=== PATIENT | female | born 1950 | race Caucasian/White ===

== ENCOUNTER 2019-05-20 00:27 | Emergency (ER) | payer OTHER ==
[2019-05-20] MEDS ORDERED: LIDOCAINE 1% MPF 5 ML VIAL ONE (01:18)
--- NOTE | 2019-05-20 01:31 | ER ---
Nurse's Notes [facility] Name: Terri Walker Age: 68 yrs Sex: Female : 1950 Arrival Date: 05/20/2019 Time: 00:30 Bed 7 Private MD: Diagnosis: Laceration of extensor muscle, fascia and tendon of right little finger at wrist and hand level Presentation: 05/19 00:37 Chief complaint: Patient states: i cut my right hand while washing a broken cup this mg2 evening. cut is approx. 0.5 inch long in between the 4th and 5th finger. Coronavirus screen: The patient has NOT traveled to [place] in the past 14 days. Proceed with normal triage procedures. Ebola Screen: No symptoms or risks identified at this time. Initial Sepsis Screen: Does the patient meet any 2 criteria? No. Patient's initial sepsis screen is negative. Does the patient have a suspected source of infection? No. Patient's initial sepsis screen is negative. Risk Assessment: Do you want to hurt yourself or someone else? Patient reports no desire to harm self or others. 00:37 Method Of Arrival: Ambulatory mg2 00:37 Acuity: CASSANDRA 4 mg2 00:46 Onset of symptoms was May 20, 2019. jd3 Historical: - Allergies: 00:43 Codeine; mg2 00:43 Morphine; mg2 00:43 all pain meds except tylenol; mg2 - Home Meds: 00:43 Lisinopril Oral [Active]; atorvastatin oral oral [Active]; carvedilol oral oral mg2 [Active]; - PMHx: 00:43 Hypertension; Hyperlipidemia; mg2 - PSHx: 00:43 hip surgery; open heart; mg2 - Immunization history:: Adult Immunizations up to date, Flu vaccine is up to date. - Social history:: Smoking status: Patient reports the use of cigarette tobacco products, smokes one pack cigarettes per day. Patient/guardian denies using alcohol, street drugs, IV drugs. Screenin:46 Abuse screen: Denies threats or abuse. Nutritional screening: No deficits noted. jd3 Tuberculosis screening: No symptoms or risk factors identified. Fall Risk None identified. Assessment: 00:41 General: Appears in no apparent distress. comfortable, well groomed, Behavior is calm, jd3 cooperative. Pain: Denies pain. Neuro: Level of Consciousness is awake, alert, obeys commands, Oriented to person, place, time, situation, Ladle Handler are equal bilaterally. Cardiovascular: Heart tones S1 S2 present Capillary refill < 3 seconds in bilateral Patient's skin is warm and dry. Respiratory: Airway is patent Respiratory effort is even, unlabored, Respiratory pattern is regular, symmetrical, Breath sounds are clear bilaterally. GI: Abdomen is flat, non-distended, Bowel sounds present X 4 quads. : No signs and/or symptoms were reported regarding the genitourinary system. EENT: No signs and/or symptoms were reported regarding the EENT system. Derm: Skin is intact, is healthy with good turgor, Skin is dry, Skin is normal, Skin temperature is warm. Musculoskeletal: Circulation, motion, and sensation intact. Range of motion: intact in all extremities. Injury Description: Laceration sustained to right hand is clean, 0.5 to 2.5 cm long, bleeding moderately, pressure dressing applied. bleeding controlled. Vital Signs: 00:37 BP 169 / 95; Pulse 70; Resp 18; Temp 98.2(TE); Pulse Ox 100% on R/A; Weight 77.11 kg; mg2 Height 5 ft. 6 in. (167.64 cm); 01:45 BP 135 / 78; Pulse 80; Resp 18; Temp 98; Pulse Ox 100% on R/A; mg2 00:37 Body Mass Index 27.44 (77.11 kg, 167.64 cm) mg2 ED Course: 00:30 Patient arrived in ED. cl3 00:40 Panchito Shepard MD is Attending Physician. tw4 00:40 Triage completed. mg2 00:40 Arm band placed on. mg2 00:41 Jose Walker RN is Primary Nurse. jd3 00:46 Patient has correct armband on for positive identification. Bed in low position. Call jd3 light in reach. Side rails up X 1. Adult w/ patient. 01:45 Assist provider with laceration repair on right hand that was 2.5 cm. or less using mg2 sutures. Set up tray. Performed by Panchito Shepard MD Dressed with Neosporin, Patient tolerated well. 3 sttitches made under local anesthseia. Patient did not have IV access during this emergency room visit. Administered Medications: 01:17 Drug: Lidocaine (1 %) 5 mg {Note: given by Dr. Shepard to affected area.} Route: jd3 Infiltration; 01:46 Follow up: Response: No adverse reaction mg2 Outcome: 01:30 Discharge ordered by MD. davis 01:46 Discharged to home ambulatory, with family. mg2 01:46 Condition: stable 01:46 Discharge instructions given to patient, family, Instructed on discharge instructions, follow up and referral plans. wound care, Demonstrated understanding of instructions, follow-up care, wound care. 01:46 Patient left the ED. mg2 Signatures: Jose Walker RN RN Panchito Thakkar MD MD tw4 Adilson Mcduffie RN RN mg2 Dalila Eden cl3 Corrections: (The following items were deleted from the chart) 00:40 00:37 BP 169 / 95; Pulse 70bpm; Resp 18bpm; Pulse Ox 100% RA; 77.11 kg; Height 5 ft. 6 mg2 in.; BMI: 27.4; mg2
--- NOTE | 2019-05-20 01:31 | EDPHYS ---
Physician Documentation [facility] Name: Terri Walker Age: 68 yrs Sex: Female : 1950 Arrival Date: 05/20/2019 Time: 00:30 Bed 7 Private MD: ED Physician Panchito Shepard HPI: 05/19 01:25 This 68 yrs old Female presents to ER via Ambulatory with complaints of tw4 Laceration To Finger. 01:25 The patient or guardian reports injury, a laceration, 5 cm(s). The complaints affect tw4 the dorsal aspect of proximal phalanx of right little finger. Context: The problem was sustained at home. Onset: The symptoms/episode began/occurred today. Modifying factors: The symptoms are alleviated by nothing. Associated signs and symptoms: The patient has no apparent associated signs or symptoms. Severity of symptoms: At their worst the symptoms were. The patient has not experienced similar symptoms in the past. Historical: - Allergies: 00:43 Codeine; mg2 00:43 Morphine; mg2 00:43 all pain meds except tylenol; mg2 - Home Meds: 00:43 Lisinopril Oral [Active]; atorvastatin oral oral [Active]; carvedilol oral oral mg2 [Active]; - PMHx: 00:43 Hypertension; Hyperlipidemia; mg2 - PSHx: 00:43 hip surgery; open heart; mg2 - Immunization history:: Adult Immunizations up to date, Flu vaccine is up to date. - Social history:: Smoking status: Patient reports the use of cigarette tobacco products, smokes one pack cigarettes per day. Patient/guardian denies using alcohol, street drugs, IV drugs. ROS: 01:25 Constitutional: Negative for fever, chills, and weight loss, Eyes: Negative for injury, tw4 pain, redness, and discharge, Cardiovascular: Negative for chest pain, palpitations, and edema. 01:25 MS/extremity: Positive for laceration. 01:25 MS/extremity: Positive for injury or acute deformity, Negative for decreased range of motion, deformity, ecchymosis, erythema, paresthesias, puncture, rash. Exam: 01:25 Constitutional: This is a well developed, well nourished patient who is awake, alert, tw4 and in no acute distress. Head/Face: Normocephalic, atraumatic. Cardiovascular: Regular rate and rhythm with a normal S1 and S2. No gallops, murmurs, or rubs. Normal PMI, no JVD. No pulse deficits. Respiratory: Lungs have equal breath sounds bilaterally, clear to auscultation and percussion. No rales, rhonchi or wheezes noted. No increased work of breathing, no retractions or nasal flaring. Neuro: Awake and alert, GCS 15, oriented to person, place, time, and situation. Cranial nerves II-XII grossly intact. Motor strength 5/5 in all extremities. Sensory grossly intact. Cerebellar exam normal. Normal gait. 01:25 Musculoskeletal/extremity: Extremities: noted in the dorsal aspect of proximal phalanx of right little finger: decreased ROM. Vital Signs: 00:37 BP 169 / 95; Pulse 70; Resp 18; Temp 98.2(TE); Pulse Ox 100% on R/A; Weight 77.11 kg; mg2 Height 5 ft. 6 in. (167.64 cm); 01:45 BP 135 / 78; Pulse 80; Resp 18; Temp 98; Pulse Ox 100% on R/A; mg2 00:37 Body Mass Index 27.44 (77.11 kg, 167.64 cm) mg2 Laceration: 01:25 Wound Repair of 7.6cm ( 3in ) subcutaneous laceration to dorsal aspect of proximal tw4 phalanx of right little finger. Distal neuro/vascular/tendon intact. 01:25 Wound Repair of 5.1cm ( 2in ) subcutaneous laceration to dorsal aspect of proximal tw4 phalanx of right little finger. Linear shaped.. Distal neuro/vascular/tendon intact. Anesthesia: Local anesthetic administered with 5 mls of 1% lidocaine. Wound prep: Moderate cleansing by nurse. Skin closed with 3 4-0 Ethilon using interrupted sutures and sterile technique. Dressed with Bacitracin, bandaid. Patient tolerated well. MDM: 00:40 Patient medically screened. tw4 01:25 Data reviewed: vital signs, nurses notes. Counseling: I had a detailed discussion with [facility] the patient and/or guardian regarding: the historical points, exam findings, and any diagnostic results supporting the discharge/admit diagnosis. Special discussion: I discussed with the patient/guardian in detail that at this point there is no indication for admission to the hospital. It is understood, however, that if the symptoms persist or worsen the patient needs to return immediately for re-evaluation. 01:25 Differential diagnosis: laceration , tendon injury. Data interpreted: Pulse oximetry: tw4 Interpretation: normal. 05/19 01:16 Order name: Dressing - Wound; Complete Time: 01:32 jd3 05/19 01:17 Order name: Gloves, Sterile; Complete Time: :17 jd3 05/19 01:17 Order name: Setup Suture Tray; Complete Time: : jd3 Administered Medications: 01:17 Drug: Lidocaine (1 %) 5 mg {Note: given by Dr. Shepard to affected area.} Route: jd3 Infiltration; 01:46 Follow up: Response: No adverse reaction mg2 Disposition: 05/20/19 01:30 Discharged to Home. Impression: Laceration of extensor muscle, fascia and tendon of right little finger at wrist and hand level. - Condition is Stable. - Discharge Instructions: Laceration Care, Adult. - Medication Reconciliation Form, Thank You Letter, Antibiotic Education, Prescription Opioid Use form. - Follow up: Private Physician; When: Upon discharge from the Emergency Department; Reason: Recheck today's complaints, Continuance of care. - Problem is new. - Symptoms have improved. Signatures: Jose aWlker RN RN jd3 Panchito Shepard MD MD tw4 Adilson Mcduffie RN RN mg2 Corrections: (The following items were deleted from the chart) 01:46 01:30 05/20/2019 01:30 Discharged to Home. Impression: Laceration of extensor muscle, mg2 fascia and tendon of right little finger at wrist and hand level. Condition is Stable. Forms are Medication Reconciliation Form, Thank You Letter, Antibiotic Education, Prescription Opioid Use. Follow up: Private Physician; When: Upon discharge from the Emergency Department; Reason: Recheck today's complaints, Continuance of care. Problem is new. Symptoms have improved. tw4
[2019-05-20 01:53] VITALS: O2SAT 100
[2019-05-20 01:54] VITALS: BP 135/78; TEMP 98
== END 2019-05-20 01:46 | disposition home or self-care (01) ==
LOC: ER 00:27
PROC: 0JQJ0ZZ Repair Right Hand Subcutaneous Tissue and Fascia, Open Approach (ICD-10-PCS; principal; 2019-05-20)
DX: S66.326A Laceration of extensor muscle, fascia and tendon of right little finger at wrist and hand level, initial encounter (principal); W25.XXXA Contact with sharp glass, initial encounter; Y93.G1 Activity, food preparation and clean up; Y92.010 Kitchen of single-family (private) house as the place of occurrence of the external cause; I10 Essential (primary) hypertension; E78.5 Hyperlipidemia, unspecified; F17.210 Nicotine dependence, cigarettes, uncomplicated
CPT/HCPCS: 99283